=== PATIENT | male | born 1970 | race Caucasian/White ===

== ENCOUNTER → 2021-09-25 | Outpatient (CLI) | payer MEDICAID ==
--- NOTE | 2021-09-25 14:02 | KCIC ---
EXAMINATION: Magnetic resonance imaging (MRI) of the brain and brainstem without contrast 09/25/2021 9:35 AM HISTORY: Staring episodes. Partial seizure TECHNIQUE: Multiplanar multi-weighted MRI of the brain and brainstem was performed without intravenou s contrast using the general brain protocol. COMPARISON: None available. FINDINGS: The scalp and calvarium are normal. The superior sagittal sinus demonstrates normal venous flow. The corpus callosum is normal in shape and signal intensity. The posterior fossa is unremarkable. The p ituitary and sella are normal. The brainstem and craniocervical junction are unremarkable.. There ar e T2/FLAIR signal hyperintense foci in the periventricular and subcortical white matter most suggesti ve of mild chronic small vessel ischemic changes. 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 There is expected dilatation of the temporal horn of lef t lateral ventricle. Diffusion weighted images reveal no hyperintensities to suggest acute cerebral infarction. The suscep tibility weighted sequences reveal no evidence of acute or chronic hemorrhage. The ventricles are nor mal in size and position without evidence of hydrocephalus. The paranasal sinuses are normal. The visualized portions of the mastoids are unremarkable. The orbi ts appear normal. Normal flow voids are demonstrated in the carotid arteries and basilar artery. IMPRESSION: 1. No evidence for acute or subacute ischemia. 2. 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 Electronically signed by: Shu Rock MD (09/25/2021 2:00 PM) [id number]
== END ==
LOC: KCIC MRI 09:16
PROVIDERS: ATTEND Nurse Practitioner Family
DX: G31.9 Degenerative disease of nervous system, unspecified (principal); R40.4 Transient alteration of awareness; R94.01 Abnormal electroencephalogram [EEG]; R93.0 Abnormal findings on diagnostic imaging of skull and head, not elsewhere classified; R56.9 Unspecified convulsions
CPT/HCPCS: 70551